=== PATIENT | female | born 2000 | race Caucasian/White ===

== ENCOUNTER 2018-09-25 22:02 | Emergency (ER) | payer BC ==
[~2018-09-25] VITALS: Ht 165.1 cm; Wt 68.2 kg
[2018-09-25 22:09] VITALS: TEMP 98.7
[2018-09-25] MEDS ORDERED: SINGULAIR 110 MG/TAB PO (22:16)
[2018-09-25] MEDS ORDERED: ZYRTEC 10MG10 MG PO (22:16)
[2018-09-25 23:29] VITALS: BP 135/79; PULSE 66
== END 2018-09-26 00:18 | disposition home or self-care (01) ==
LOC: COL.ER 22:02
DX: T78.40XA Allergy, unspecified, initial encounter (principal)
CPT/HCPCS: J1200; J2930; J7030

== ENCOUNTER 2019-12-13 20:17 | Emergency (ER) | payer BC ==
[~2019-12-13] VITALS: Ht 167.6 cm; Wt 68.2 kg
[~2019-12-13 20:17] MED LIST: SINGULAIR 110 MG/TAB PO; ZYRTEC 10MG10 MG PO
[2019-12-13 21:16] LABS: COLLECTION METHOD CLEAN CATCH
[2019-12-13 21:21] LABS: BASO % 0.2 % (0.0-2.0); EOS # 0.1 (0.0-0.7); EOS % 0.8 % (0-4.0); GRAN # 15.3 (1.4-6.5); HEMATOCRIT 45.8 % (37.0-47.0); HEMOGLOBIN 15.3 g/dl (12.5-16.0); LYMPH # 1.6 (1.2-3.4); LYMPH % 9.1 % (20.0-51.0); MEAN CELL VOLUME 90 fl (80.0-100.0); MEAN CORPUSCULAR HEMOGLOBIN 30 pg (27.0-31.0); MEAN CORPUSCULAR HGB CONC 33 g/dl (33.0-37.0); MEAN PLATELET VOLUME 11.1 fl (7.4-10.4); MONO # 0.6 (0.1-0.6); MONO % 3.5 % (1.7-9.3); PLATELET COUNT 211 K/mm3 (130-400); RED BLOOD COUNT 5.09 M/mm3 (4.10-5.30); REDCELL DISTRIBUTION WIDTH-CV 12.1 % (11.5-14.5)
[2019-12-13 21:24] LABS: MUCOUS Present /lpf; PH 5 (5-8); URINE APPEARANCE Hazy; URINE BACTERIA None Seen /hpf; URINE BILIRUBIN Negative (NEGATIVE); URINE BLOOD 2+ (NEGATIVE); URINE COLOR Yellow; URINE GLUCOSE Negative (NEGATIVE); URINE KETONE Trace (NEGATIVE); URINE LEUKOCYTE ESTERASE Negative (NEGATIVE); URINE NITRATE Negative (NEGATIVE); URINE PROTEIN(semi-quant) Negative (NEGATIVE); URINE RBC 0-2 /hpf; URINE UROBILINOGEN Negative (NEGATIVE)
[2019-12-13 21:32] LABS: ALBUMIN 4.7 gm/dL (3.5-5.0); BILIRUBIN,TOTAL 0.6 mg/dL (0.0-1.0); C-REACTIVE PROTEIN 8.4 mg/dL (0.0-0.9); CALCIUM 9.2 mg/dL (8.4-10.2); CREATININE, serum 0.69 (0.52-1.25); POTASSIUM 3.4 mmol/L (3.4-5.0); TOTAL PROTEIN 8.4 gm/dL (6.4-8.2)
[2019-12-13] MEDS ORDERED: NORCO 325 MG-51 TAB PO (23:05)
[2019-12-14 00:25] VITALS: BP 128/74; PULSE 104; TEMP 99.2
== END 2019-12-14 00:29 | disposition home or self-care (01) ==
LOC: COL.ER 20:17
PROVIDERS: Family Medicine
DX: U07.1 COVID-19 (principal); I88.0 Nonspecific mesenteric lymphadenitis
CPT/HCPCS: J2270; J2405; J7120; Q9967